=== PATIENT | male | born 1945 | race Caucasian/White ===

== ENCOUNTER 2019-07-22 07:42 | Outpatient (CLI) | payer MEDICARE ==
--- NOTE | 2019-07-22 08:29 | ULT ---
ABDOMINAL ULTRASOUND HISTORY: Lower abdominal pain and diarrhea FINDINGS: Liver: At the upper limits of normal in size measuring 17 cm in craniocaudal dimensions. Mildly coars ened echotexture is present which may be attributable to fatty infiltration. No focal hepatic lesion is seen. Gallbladder: No gallbladder calculi are visualized. There is no gallbladder wall thickening or perich olecystic fluid. Common duct: Common duct is normal in caliber for patient's age measuring 0.6 cm in diameter. Pancreas: Not well evaluated due to shadowing from bowel gas, but where visualized, the pancreas demo nstrates a grossly normal sonographic appearance. IVC: Limited visualized IVC has a normal sonographic appearance. Aorta: Proximal abdominal aorta is obscured due to shadowing from bowel gas. The mid and distal abdom inal aorta are normal in caliber. Spleen: Within normal limits. Kidneys: Kidneys demonstrate a normal sonographic appearance bilaterally with each kidney measuring a pproximately 12 cm in length. IMPRESSION: 1. Mildly coarsened echotexture of the liver suggesting fatty infiltration. 2. No gallbladder calculus is visualized, and the common duct is normal in caliber for the patient's age.
== END 2019-07-22 07:43 | disposition home or self-care (01) ==
LOC: SCSULT 07:42
DX: R10.30 Lower abdominal pain, unspecified (principal)
CPT/HCPCS: 93975

== ENCOUNTER 2019-08-22 08:43 | Outpatient (CLI) | payer MEDICARE ==
--- NOTE | 2019-08-22 12:21 | CT ---
CT ABDOMEN AND PELVIS WITH ORAL AND IV CONTRAST: HISTORY: Lower abdominal pain and change in bowel habits. COMPARISON: None. FINDINGS: The lung bases are unremarkable. No calcified gallstones are seen. The liver, spleen, pancreas, adr enal glands, and kidneys are normal. No free air, free fluid, or lymphadenopathy is seen in the abdo men or pelvis. The small bowel loops are not abnormally dilated. A normal-appearing appendix is present. There is fecal material in the colon. There are vascular calcifications without evidence of aneurysmal dilata tion of the abdominal aorta. There are degenerative changes in the spine. There are bilateral total hip arthroplasties. There are artifacts from these metallic arthroplasties resulting in inadequate evaluation of the pelvic contents. A penile pump is seen. There are small fat-containing inguinal herniae. IMPRESSION: No significant abnormalities are identified. POS: [facility]
== END 2019-08-22 08:44 | disposition home or self-care (01) ==
LOC: SCSCT 08:43
DX: R10.30 Lower abdominal pain, unspecified (principal); R19.4 Change in bowel habit
CPT/HCPCS: 74178; 82565

== ENCOUNTER 2021-07-18 19:00 | Outpatient (CLI) | payer MEDICARE | END 2021-07-18 19:01 | disposition home or self-care (01) | LOC: SLEEPLAB 19:00 | PROVIDERS: ATTEND Internal Medicine | DX: G47.33 Obstructive sleep apnea (adult) (pediatric) (principal); R53.83 Other fatigue; F32.9 Major depressive disorder, single episode, unspecified; R06.83 Snoring; G45.9 Transient cerebral ischemic attack, unspecified; I48.91 Unspecified atrial fibrillation; I10 Essential (primary) hypertension; G47.10 Hypersomnia, unspecified; G47.00 Insomnia, unspecified; K21.9 Gastro-esophageal reflux disease without esophagitis; G47.31 Primary central sleep apnea | CPT/HCPCS: 95810 ==

== ENCOUNTER 2021-09-07 19:30 | Outpatient (CLI) | payer MEDICARE | END 2021-09-07 19:31 | disposition home or self-care (01) | LOC: SLEEPLAB 19:30 | PROVIDERS: ATTEND Internal Medicine | DX: G47.33 Obstructive sleep apnea (adult) (pediatric) (principal); R53.83 Other fatigue; F32.A Depression, unspecified; R06.83 Snoring; G45.9 Transient cerebral ischemic attack, unspecified; I10 Essential (primary) hypertension | CPT/HCPCS: 95811 ==

== ENCOUNTER 2021-12-08 06:27 | Day surgery (SDC) | payer MEDICARE ==
[2021-12-06 13:57] VITALS: BMI 27.1
[2021-12-08] MEDS ORDERED: Bupivacaine 0.25% 10 ML VIAL ONE (09:00)
[2021-12-08] MEDS ORDERED: Bacitracin Zinc Ointment 30 gm TUBE ONE (09:00)
[2021-12-08] MEDS ORDERED: Neomycin-Polymyxin 1 ML AMP ONE (09:00)
[2021-12-08] MEDS ORDERED: fentaNYL Citrate/PF 100 MCG/2 ML SYRINGE ONE (09:01)
[2021-12-08] MEDS ORDERED: Sodium Chloride 0.9% 100 ML ONE (09:11)
[2021-12-08] MEDS ORDERED: CEFAZOLIN 2 GM VIAL ONE (09:11)
[2021-12-08] MEDS ORDERED: Ondansetron PF 4 MG/2 ML Vial ONE (09:27)
[2021-12-08] MEDS ORDERED: Dexamethasone 20 MG/5 ML VIAL ONE (09:27)
[2021-12-08] MEDS ORDERED: Lidocaine 1% MPF 2 ML VIAL ONE (09:27)
[2021-12-08] MEDS ORDERED: ePHEDrine 50 MG/ML VIAL ONE (09:27)
[2021-12-08] MEDS ORDERED: Succinylcholine 200 MG/10 ml SYRINGE FS ONE (09:27)
[2021-12-08] MEDS ORDERED: PROPOFOL 200 MG/20 ML VIAL ONE (09:27)
== END 2021-12-08 14:00 | disposition home or self-care (01) ==
LOC: SDC 06:27
PROVIDERS: ATTEND Urology
PROC: 01HY3MZ Insertion of Neurostimulator Lead into Peripheral Nerve, Percutaneous Approach (ICD-10-PCS; principal; 2021-12-08)
DX: N32.81 Overactive bladder (principal); N39.41 Urge incontinence; R39.12 Poor urinary stream; N30.40 Irradiation cystitis without hematuria; N28.1 Cyst of kidney, acquired; I10 Essential (primary) hypertension; R73.03 Prediabetes; E03.9 Hypothyroidism, unspecified; E78.00 Pure hypercholesterolemia, unspecified; M19.90 Unspecified osteoarthritis, unspecified site; I48.0 Paroxysmal atrial fibrillation; K21.9 Gastro-esophageal reflux disease without esophagitis; Z85.46 Personal history of malignant neoplasm of prostate; Z87.891 Personal history of nicotine dependence; Z92.3 Personal history of irradiation; Z79.01 Long term (current) use of anticoagulants; Z79.890 Hormone replacement therapy; Z79.899 Other long term (current) drug therapy; Z88.2 Allergy status to sulfonamides
CPT/HCPCS: 72220; 76000; C1897; J0690; J1100; J2405; J2704; J3490; S0020

== ENCOUNTER 2021-12-13 13:20 | Outpatient (CLI) | payer MEDICARE | END 2021-12-13 13:21 | disposition home or self-care (01) | LOC: LABBT 13:20 | PROVIDERS: ATTEND Urology | DX: Z20.822 Contact with and (suspected) exposure to COVID-19 (principal) | CPT/HCPCS: 87811 ==